=== PATIENT | male | born 1985 | race Caucasian/White ===

== ENCOUNTER 2017-03-23 19:17 | Emergency (ER) | payer BC, OTHER ==
[~2017-03-23] VITALS: Ht 182.9 cm; Wt 82.0 kg
[2017-03-23 19:37] VITALS: Ht 182.9 cm; Wt 82.0 kg
[2017-03-23] MEDS ORDERED: ONDANSETRON (ODT) 4 MG TAB ODT STA (20:06)
[2017-03-23] MEDS ORDERED: HYDROCODONE/APAP (5/325) TAB PO ONE (20:30)
--- NOTE | 2017-03-23 21:30 | RADRPT ---
PROCEDURE: Noncontrast CT Head. CLINICAL INDICATION: Trauma. TECHNIQUE: Noncontrast CT of the head was obtained. The administered radiation dose was CTDI vol = 43.68 mGy, DLP = 720.23 mGy-cm. One or more of the following dose reduction techniques were used: Au tomated exposure control, Adjustment of the mA and/or kV according to patient size, or Use of iterat hieu reconstruction technique. COMPARISON: There are no similar studies submitted for comparison. FINDINGS: The ventricles and sulci are within normal limits. There is no loss of lyn-white differentiation to suggest acute territorial infarction. There is no acute intracranial hemorrhage or extra-axial fluid collection. There is no mass effect. No midline shift is identified. The orbits are within normal limits. There is moderate bilateral ethmoid sinus mucosal thickening. There is mild bilateral maxillary sin us mucosal thickening. No destructive osseous lesion is identified. IMPRESSION: No acute intracranial hemorrhage or extra-axial fluid collection. Further findings as detailed above. RPTAT: HVF .Galindo Sanchez MD, MD Date Time Electronically viewed and signed by .Galindo Sanchez MD, on 03/23/2017 21:30 .F/
--- NOTE | 2017-03-23 21:41 | RADRPT ---
PROCEDURE: CT facial bones CLINICAL INDICATION: Pain status post trauma TECHNIQUE: A CT of the facial bones was performed on a GE 64-slice CT scanner utilizing high-resol ution axial images. Sagittal, coronal, and multiplanar reformatted images were made. Additionally, 3-D reformatted images were made. The CTDIvol is 29.40 mGy and the DLP is 517.26 mGy-cm. COMPARISON: Brain CT 03/23/2017 FINDINGS: The visualized imaged portions of the hyoid bone and thyroid cartilage and mandible are normal. The bilateral pterygoid plates are intact. The bilateral zygoma, nasal bones, coleman of the bony orbit and paranasal sinuses are all intact without fractures visualized. The imaged portions of the paran froilan sinuses demonstrate chronic bilateral ethmoid sinus and left greater than right maxillary sinus disease with minimal mucoperiosteal disease in the sphenoid and frontal sinuses. This compatible w ith chronic pansinusitis. Obstruction of the bilateral maxillary ostia are noted with patent bilate ral frontal recesses and obstructed bilateral sphenoethmoidal recesses. The imaged bilateral mastoi d air cells are clear as are the middle ear cavities. The nasal septum is deviated to the left 3 mm . The nasopharynx is symmetric. The bilateral globes are intact. The bilateral intraconal and extraconal spaces as well as optic ne rves are normal and symmetric. Soft tissue swelling is noted in the left preseptal and main lar sof t tissues with inflammation of the subcutaneous fat along the left maxillofacial regions. Inflammat ion is noted with thickening of the left platysma muscle. The imaged portions of the brain are normal. IMPRESSION: 1. No evidence for acute maxillofacial or orbital fractures. 2. Chronic pansinusitis as noted above. 3. Left malar and preseptal orbital subcutaneous soft tissue edema or hematoma with infiltration of the left ozzy facial subcutaneous fat and platysma muscle thickening. RPTAT: HDC .Ana Rosa Johns MD, Date Time Electronically viewed and signed by .Ana Rosa Johns MD, on 03/23/2017 21:41 .C/
[2017-03-23] MEDS ORDERED: IBUP-1542 PO (21:46)
[2017-03-23] MEDS ORDERED: DOXY100T20 PO (21:53)
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
== END 2017-03-23 22:02 | disposition home or self-care (01) ==
LOC: FTE 19:17
DX: R60.0 Localized edema (principal); R93.0 Abnormal findings on diagnostic imaging of skull and head, not elsewhere classified
CPT/HCPCS: 70450; 70486